=== PATIENT | male | born 2000 | race Asian ===

== ENCOUNTER 2021-08-31 08:00 | Outpatient (CLI) | payer OTHER ==
--- NOTE | 2021-09-01 08:32 | XRAY Report ---
PROCEDURE: Finger(s) RT INDICATIONS: CONTUSION OF RIGHT 4TH FINGER TECHNIQUE: AP hand, 2 views of the fourth finger(s) acquired. COMPARISON: None. FINDINGS: BONES: Mildly displaced fracture of the fourth distal phalanx. The remaining visualized osseous struc tures appear maintained. SOFT TISSUES: Edema about the fracture site. IMPRESSION: 1.Mildly displaced fracture of the fourth distal phalanx. Reviewed by: Juan Garcia MD on 09/01/2021 8:31 AM PDT Approved by: Juan Garcia MD on 09/01/2021 8:31 AM PDT Station ID: [id number]
== END 2021-08-31 23:59 ==
LOC: DI.N 08:00
PROVIDERS: ATTEND Physician Assistant
DX: S62.634A Displaced fracture of distal phalanx of right ring finger, initial encounter for closed fracture (principal)

== ENCOUNTER 2022-05-28 09:33 | Outpatient (CLI) | payer OTHER ==
--- NOTE | 2022-05-28 14:33 | MRI Report ---
PROCEDURE: KNEE WO - RT INDICATIONS: BILATERAL KNEE PAIN TECHNIQUE: Noncontrast sagittal PD fast spin echo and T2 fast spin echo with fat saturation, sagittal 3-D spoile d GE with fat saturation; coronal T1 spin echo and PD fast spin echo with fat saturation, and axial P D fast spin echo with fat saturation through the knee. COMPARISON: None. FINDINGS: Image quality: Excellent. Anterior cruciate ligament: Intact. Posterior cruciate ligament: Intact. Medial collateral ligament: Intact. Lateral collateral ligament: Intact. Medial meniscus: Intermediate signal intensity is seen within the body and posterior horn of the med ial meniscus which approaches the tibial articular surface without definite communication. Lateral meniscus: Intact. Medial and lateral tendons: The semimembranosus tendon insertions appear intact. Visualized portion s of the pes anserinus tendons appear normal. The popliteus tendon appears intact. Iliotibial band appears normal. Anterior structures: The quadriceps and patellar tendons appear intact. Patellar alignment is tanya l. No femoral trochlear dysplasia or ventral trochlear prominence. No edema in the infrapatellar fa t pad. Bones: No acute trabecular bone injury or fracture. Medial femorotibial cartilage: Mild cartilage thinning in the weightbearing portion of the medial fe morotibial compartment. Lateral femorotibial cartilage: No focal cartilage defect. Patellofemoral cartilage: No focal cartilage defect. Soft tissues: There is a physiologic amount of joint fluid. There is no medial popliteal cyst. The musculature surrounding the knee is normal in bulk. Lobular fluid collection adjacent to the posterior root attachment of the medial meniscus measures 11 x 5 x 4 mm and may represent a parameniscal cyst, ganglion cyst, or loculated joint fluid. IMPRESSION: 1.Intermediate signal intensity within the posterior horn and body of the medial meniscus approaching the tibial articular surface may represent intrasubstance degeneration or a subtle oblique tear. 2.Cruciate and collateral ligaments are intact. No acute trabecular bone injury. 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 4.Lobular 11 mm cyst adjacent to the posterior root attachment of the medial meniscus may represent a small ganglion cyst, parameniscal cyst, or loculated joint fluid. Reviewed by: Zia Saleh MD on 05/28/2022 2:32 PM PST Approved by: Zia Saleh MD on 05/28/2022 2:32 PM PST Station ID: [id number]
--- NOTE | 2022-05-28 14:37 | MRI Report ---
PROCEDURE: KNEE WO - LT INDICATIONS: BILATERAL KNEE PAIN TECHNIQUE: Noncontrast sagittal PD fast spin echo and T2 fast spin echo with fat saturation, sagittal 3-D spoile d GE with fat saturation; coronal T1 spin echo and PD fast spin echo with fat saturation, and axial P D fast spin echo with fat saturation through the knee. COMPARISON: None. FINDINGS: Image quality: Excellent. Anterior cruciate ligament: Chronic complete tearing of the anterior cruciate ligament at the midpor tion. Distal ligament fibers are inferiorly displaced and may be adherent to the posterior cruciate l igament. Posterior cruciate ligament: Intact. Medial collateral ligament: Intact. Lateral collateral ligament: Intact. Medial meniscus: Intact. Lateral meniscus: The posterior horn and body of the lateral meniscus appear diminutive, suspicious for chronic tearing and maceration. No large displaced meniscal flap is identified. Medial and lateral tendons: The semimembranosus tendon insertions appear intact. Visualized portion s of the pes anserinus tendons appear normal. The popliteus tendon appears intact. Iliotibial band appears normal. Anterior structures: The quadriceps and patellar tendons appear intact. Patellar alignment is tanya l. No femoral trochlear dysplasia or ventral trochlear prominence. No edema in the infrapatellar fa t pad. Bones: Osseous edema is seen at the posterior weightbearing portion of the lateral femoral condyle a nd the far posterior portion of the lateral tibial plateau, which may be secondary to osseous contusi ons or overlying cartilage loss. Minimal subchondral edema is seen at the far posterior aspect of the medial tibial plateau. A benign bone island is seen in the medial femoral condyle. Medial femorotibial cartilage: Mild to moderate partial-thickness cartilage loss is seen in the weig htbearing portion of the medial compartment. Lateral femorotibial cartilage: There is high-grade and likely full-thickness cartilage loss in the central weightbearing portion of the lateral femoral condyle with subchondral osteophyte formation. C artilage irregularity is seen in the far posterior portion of the lateral tibial plateau. Patellofemoral cartilage: No focal cartilage defect. Soft tissues: There is a small joint effusion. A 6 x 5 x 2 mm hypointense structure is seen adjacent to the anterior attachment of the lateral meniscus that may represent a small intra-articular loose body. There is no medial popliteal cyst. The musculature surrounding the knee is normal in bulk. IMPRESSION: 1.Mild osseous edema at the posterior weightbearing portion of the lateral femoral condyle and the fa r posterior portion of the lateral tibial plateau may be secondary to recent osseous contusions versu s overlying cartilage loss. 2.Diminutive appearance of the posterior horn and body of the lateral meniscus is most likely seconda ry to chronic complex tearing and maceration. No definite displaced meniscal flap is seen. 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 There is grade II chondromalacia in the medial compartment. 5.Small joint effusion. Possible small 6 mm intra-articular loose body adjacent to the anterior root attachment of the lateral meniscus but Reviewed by: Zia Saleh MD on 05/28/2022 2:35 PM PST Approved by: Zia Saleh MD on 05/28/2022 2:35 PM PST Station ID: [id number]
== END 2022-05-28 09:34 | disposition home or self-care (01) ==
LOC: DI 09:33
DX: M94.261 Chondromalacia, right knee (principal); M25.861 Other specified joint disorders, right knee; S83.512A Sprain of anterior cruciate ligament of left knee, initial encounter; M94.262 Chondromalacia, left knee; M25.462 Effusion, left knee